=== PATIENT | male | born 1970 | race African-American/Black ===

== ENCOUNTER 2020-12-18 18:50 | Emergency (ER) | payer OTHER ==
[2020-12-18 19:25] LABS: BASOPHIL 1.1 % (0-2); EOSINOPHIL 2.4 & (0-5); HCT 42.2 % (42.0-52.0); HGB 14.2 g/dl (13.2-18.0); LYMPHOCYTE 26.6 % (15-48); MCH 33.2 pg (25.0-31.0); MCHC 33.6 g/dL (32.0-36.0); MCV 98.6 fL (78.0-100.0); MPV 10.7 fL (6.0-9.5); NEUTROPHIL 56.9 % (41-80); PLT 216 K/uL (150-400); RBC 4.28 M/uL (4.70-6.00); RDW 14.5 % (11.5-14.0); WBC 5.52 K/uL (4.0-10.5)
[2020-12-18 19:37] LABS: INR 1.14 (0.9-1.2); PTT 30.1 SECONDS (24.4-34.7)
[2020-12-18 19:38] LABS: D-DIMER 0.95 ug/mLFEU (0.00-0.41)
[2020-12-18 19:47] LABS: ALBUMIN 3.3 g/dL (3.4-5.0); ALKALINE PHOSHATASE 153 U/L (46-116); ALT 874 U/L (16-63); AST 486 U/L (15-37); BILIRUBIN - TOTAL 1.5 mg/dL (0.2-1.0); BUN 17 mg/dL (7-18); BUN/CREAT RATIO (CALC) 15.3 RATIO; CHLORIDE 104 mmol/L (98-107); CO2 (BICARBONATE) 33 mmol/L (21-32); CREATININE 1.11 mg/dL (0.67-1.17); GLOBULIN (CALCULATION) 3.9 g/dL; GLUCOSE 117 mg/dL (74-106); LIPASE 228 U/L (73-393); POTASSIUM 4.5 mmol/L (3.5-5.1); TOTAL PROTEIN 7.2 g/dL (6.4-8.2)
[2020-12-18 19:48] LABS: C-REACTIVE PROTEIN < 0.20 mg/dL (<=0.90)
[2020-12-18 22:17] LABS: AMPHETAMINES NEGATIVE (NEGATIVE); BARBITURATES NEGATIVE (NEGATIVE); ECSTASY (MDMA) NEGATIVE (NEGATIVE); MARIJUANA (THC) NEGATIVE (NEGATIVE); METHADONE NEGATIVE (NEGATIVE); OPIATES NEGATIVE (NEGATIVE); OXYCODONE NEGATIVE (NEGATIVE)
[2020-12-18] MEDS ORDERED: COLACE100 MG PO (23:23)
[2020-12-18] MEDS ORDERED: PROTONIX 40MG T40 MG PO (23:23)
[2020-12-18] MEDS ORDERED: MIRALAX 238GM238 GM PO (23:23)
== END 2020-12-19 00:30 | disposition home or self-care (01) ==
LOC: FER 18:50
PROVIDERS: Emergency Medicine Emergency Medical Services
DX: R07.89 Other chest pain (principal); R74.01 Elevation of levels of liver transaminase levels; R11.0 Nausea; I10 Essential (primary) hypertension; Z79.899 Other long term (current) drug therapy; Z20.822 Contact with and (suspected) exposure to COVID-19
CPT/HCPCS: 36415; 71045; 71275; 80053; 80305; 83690; 84484; 85025; 85379; 85610; 85730; 86140; 93005; G0480; Q9967; U0002